=== PATIENT | female | born 1965 | race Caucasian/White ===

== ENCOUNTER 2021-11-21 10:01 | Emergency (ER) | payer SELFPAY ==
[~2021-11-21] VITALS: Ht 167.6 cm; Wt 55.0 kg
[2021-11-21 10:57] VITALS: BP 166/97
[2021-11-21 11:46] LABS: BASOPHILS % 0.4 % (0.0-2.0); EOSINOPHILS % 1.1 % (0.0-5.0); HEMATOCRIT. 41.9 % (36.0-48.0); HEMOGLOBIN. 14.3 g/dL (12.0-16.0); LYMPHOCYTES % 29.8 % (20.0-50.0); MEAN CORPUSCULAR HEMOGLOBIN 30.7 pg (28.0-32.0); MEAN CORPUSCULAR VOLUME 90.1 fL (81.0-99.0); MEAN PLATELET VOLUME 10.9 fl (7.4-10.4); MONOCYTES % 6.4 % (2.0-8.0); NEUTROPHILS % 62.3 % (40.0-76.0); PLATELET 215 x1000/uL (130-400); RED BLOOD CELL COUNT 4.65 mill/uL (4.2-5.4)
[2021-11-21 11:55] LABS: CHLORIDE 110 mEq/L (98-107)
[2021-11-21] MEDS ORDERED: LISI-186 MT (15:17)
== END 2021-11-21 15:35 | disposition home or self-care (01) ==
LOC: ER 13:04
DX: I10 Essential (primary) hypertension (principal)
CPT/HCPCS: 36415; 71045; 80053; 85025; 93005; 99285